=== PATIENT | male | born 1960 | race Caucasian/White ===

== ENCOUNTER → 2017-01-23 | Outpatient (CLI) | payer MEDICARE ==
[~2017-01-23] MED LIST: ADVA250A INH; ALBUAER3 INH; AMIT25TA9 PO; AMIT50TA3 PO; ASPI1TAB69 PO; ATEN50TA PO; BUPR150CR PO; CARV12.52 PO; CEPH-460 PO; CLOP75TA PO; FENO160T PO; GABA600T PO; HYDR-3583 PO; ISOS30TA3 PO; LISI40TA PO; MORP15TA73 PO; ROSU1TAB10 PO
[2017-01-23 13:03] LABS: BASOPHIL # 0.1 TH/MM3 (0-0.2); BASOPHIL % 0.7 % (0.0-2.0); EOSINOPHIL # 0.1 TH/MM3 (0-0.4); EOSINOPHIL % 1.7 % (0.0-4.0); HEMATOCRIT 41.3 % (39.0-51.0); HEMO FLAGS DIFF FINAL; LYMPH % 27.9 % (9.0-44.0); LYMPHOCYTE # 2.2 TH/MM3 (1.0-4.8); MEAN CELL VOLUME 92.3 FL (80.0-100.0); MEAN CORPUSCULAR HEMOGLOBIN 31.6 PG (27.0-34.0); MEAN CORPUSCULAR HGB CONC 34.2 % (32.0-36.0); MONO % 6.4 % (0.0-8.0); NEUT % 63.3 % (16.0-70.0); PLATELET COUNT 191 TH/MM3 (150-450); RED BLOOD COUNT 4.47 MIL/MM3 (4.50-5.90); RED CELL DISTRIBUTION WIDTH 14.2 % (11.6-17.2); WHITE BLOOD COUNT 7.9 TH/MM3 (4.0-11.0)
[2017-01-23 13:10] LABS: BACTERIA, URINE RARE /hpf; BLOOD, URINE NEG (NEG); COMMENT (UR) CULT NOT INDICATED; CULTURE IF INDICATED CULT NOT INDICATED; GLUCOSE,URINE NEG (NEG); KETONE, URINE NEG (NEG); NITRITE,URINE NEG (NEG); SQUAMOUS EPITHELIAL CELL URINE <1 /hpf (0-5); URINE COLOR YELLOW (YELLW/STRAW)
[2017-01-23 13:11] LABS: APTT (PATIENT) 28.2 SEC (24.3-30.1); PROTHROMBIN TIME - PATIENT 10.9 SEC (9.8-11.6)
[2017-01-23 13:33] LABS: ALKALINE PHOSPHATASE 65 U/L (45-117); ALT (GPT) 26 U/L (12-78); ANION GAP 7 MEQ/L (5-15); AST (GOT) 13 U/L (15-37); BICARBONATE 29.7 MEQ/L (21.0-32.0); BLOOD UREA NITROGEN 12 MG/DL (7-18); CHLORIDE 103 MEQ/L (98-107); GLOMERULAR FILTRATION RATE 63 ML/MIN (>89); GLUCOSE,FASTING 93 MG/DL (74-99); POTASSIUM 4.4 MEQ/L (3.5-5.1); SODIUM (NA) 140 MEQ/L (136-145); TOTAL BILIRUBIN ADULT 0.7 MG/DL (0.2-1.0)
--- NOTE | 2017-01-23 18:41 | EKG ---
Date Performed: 01/23/2017 Time Performed: 11:56:05 PTAGE: 56 years EKG: Sinus rhythm NONSPECIFIC T-WAVE ABNORMALITY BORDERLINE ECG NO PREVIOUS TRACING DOCTOR: Carlos Glover Interpretating Date/Time 01/23/2017 18:40:20
== END ==
LOC: CPRE 11:19
PROVIDERS: ATTEND Neurological Surgery
DX: Z01.810 Encounter for preprocedural cardiovascular examination (principal); Z01.812 Encounter for preprocedural laboratory examination; I25.10 Atherosclerotic heart disease of native coronary artery without angina pectoris; I10 Essential (primary) hypertension; E78.5 Hyperlipidemia, unspecified; R94.31 Abnormal electrocardiogram [ECG] [EKG]; Z79.01 Long term (current) use of anticoagulants; Z95.1 Presence of aortocoronary bypass graft; Z95.5 Presence of coronary angioplasty implant and graft
CPT/HCPCS: 36415; 80053; 81001; 85025; 85610; 85730; 93005

== ENCOUNTER 2017-01-28 05:56 | Observation (INO) | payer MEDICARE ==
--- NOTE | 2017-01-27 17:52 | MH ---
cc: MILAGROS MCGINNIS MD, ROHIT K. M.D. LEE, TSE C. MD NEWBYBAL,CHAS Rao MD DATE OF ADMISSION 01/28/2017 ADMITTING DIAGNOSIS Cervical degenerative disc disease. HISTORY OF THE PRESENT ILLNESS This is a 56-year-old male who presented to us for an evaluation of neck pain that he has had since 1998 when 300 pounds landed on the right side of his neck and shoulder. He states that he tore his brachial plexus and sustained significant nerve and motor damage related to this. He states that he gets severe headaches at night. He hears a grinding noise in his neck. He denies any radiculopathy in the upper extremities. He has numbness in the right upper extremity related to the nerve damage from his brachial plexus and sometimes gets numbness in the left hand also. He states that he feels like an ice pick is stabbing into the right side of his neck and then down his back. He denies any bowel or bladder incontinence or frequency. He has been to pain management and had extensive treatment with numerous injections since 1998 that have had varying degrees of success. He has been to physical therapy several times and he even has a home traction device. PAST MEDICAL HISTORY Significant for: 1. Headaches. 2. Hyperlipidemia. 3. Hypertension. 4. Chronic obstructive pulmonary disease. 5. Coronary artery disease with a history of coronary stents and bypass graft. 6. He also had surgery on his head and face. 7. He has also had bilateral shoulder surgery and surgery on his right hand also. MEDICATIONS Current medications: 1. He takes albuterol 90 micrograms two puffs q.4h as needed. 2. Amitriptyline 25 milligrams q.h.s. 3. Isosorbide mononitrate extended release 30 milligrams p.o. daily. 4. Morphine sulfate 15 milligrams p.o. q.6h. 5. Rosuvastatin 40 milligrams daily. 6. Aspirin 81 milligrams daily, this was placed on hold prior to surgical intervention. 7. Atenolol 50 milligrams p.o. daily. 8. Wellbutrin SR 150 milligrams p.o. q.12h. 9. Carvedilol 12.5 milligrams p.o. twice a day. 10. Plavix 75 milligrams p.o. daily. This was placed on hold one week prior to surgical intervention. 11. Fenofibrate 160 milligrams p.o. daily. 12. Advair Diskus inhaled one puff twice a day. 13. Gabapentin 600 milligrams p.o. twice a day. 14. Lisinopril 40 milligrams p.o. daily. ALLERGIES HE IS ALLERGIC TO TETRACYCLINE WHICH CAUSES SEVERE SKIN RASH AND AYALA AND BLISTERS. FAMILY HISTORY His mother is alive at 85 years old. His father is . He has one brother and one sister that are both alive. SOCIAL HISTORY He has children. He smokes 1-1/2 packs a day for 50 years. He drinks alcohol but states that it is once or twice a month. REVIEW OF SYSTEMS CONSTITUTIONAL: He denies any fever or chills. EARS, NOSE, AND THROAT: No pharyngitis or exudate or bloody drainage from his nose. CARDIOVASCULAR: Denies any chest pain, palpitations. RESPIRATORY: No cough or shortness of breath. Positive for wheezing. GENITOURINARY: No dysuria or polyuria. MUSCULOSKELETAL: Positive for neck pain. SKIN: No rashes or pruritus. NEUROLOGICAL: No difficulty with extremity weakness. Positive for difficulty with speech and memory. GASTROINTESTINAL: No nausea or vomiting, abdominal pain. PSYCHIATRIC: No anxiety or depression symptoms. ENDOCRINE: No polyuria or polydipsia. HEMATOLOGIC: No bruising or bleeding tendencies. PHYSICAL EXAMINATION HEAD: Normocephalic, atraumatic. NECK: Supple. No carotid bruits heard on auscultation. LUNGS: Clear to auscultation bilaterally. HEART: Regular rate and rhythm. Normal S1-S2. ABDOMEN: Soft. Positive bowel sounds. SKIN: Reveals no cyanosis or erythema. MUSCULOSKELETAL: He moves all four extremities but has restricted range of motion and strength in the right upper extremity related to his brachial plexus injury. He cannot abduct the arm to 90 degrees and has 3/5 strength. He has 3/5 triceps strength, 1/5 biceps strength. His right first finger has a 4/5 strength. The second finger is flexed. The third through the fifth fingers are extended and cannot be flexed. His left upper extremity strength is 5/5. NEUROLOGICAL: He is awake and alert, oriented. Cranial nerves II through XII appear grossly intact. Speech is fluent. Comprehension is good. Sensation is diminished in the right upper extremity, intact in the left upper extremity, although does complain of intermittent paresthesias and numbness in the left C6 and C7 dermatome. Reflexes are diminished in the upper and lower extremities. IMAGING Data reviewed, review MRI of the cervical spine from August 18, 2016 which reveals a disc osteophyte complex with degenerative disc disease at the C6-C7 level with associated spinal and bilateral foraminal stenosis. IMPRESSION A 56-year-old male with neck pain and associated occipital headaches and intrascapular and shoulder area pain as well as C6-C7 radiculopathy. He has chronic right brachial plexus injury and limited sensation and motor activity in the right arm and hand. He has a C6-C7 disc osteophyte complex with degenerative disc disease and associated spinal foraminal stenosis. He has failed conservative treatment measures including physical therapy and interventional pain management. He states that he cannot live with his current level of discomfort and is requesting surgical intervention. PLAN We have discussed treatment options with the patient and he will be a candidate for an anterior C6-C7 microdiskectomy with fusion that would address the degenerative disc disease along with disc osteophyte complex and spinal stenosis and foraminal stenosis. We have obtained cardiac clearance from his cert occupational therapy asst Dr. Mcginnis who states that the patient is cleared for neck surgery. Risks of cardiac complications is increased but not prohibitive. We have discussed the procedure in details with the patient as well as the risks, benefits and alternatives and recovery time. We have advised the patient to quit smoking at least two weeks prior to surgical intervention and he will need to refrain from smoking during his recovery where there is a risk of non fusion. The patient also understands the cardiopulmonary risks associated with smoking prior to surgical intervention. We have discussed further risks involved with surgery which include but are not limited to bleeding, infection, muscle weakness, voice hoarseness, difficulty swallowing, heart attack, stroke, blood clots, non fusion, scar tissue formation among others. The patient states that he understands the procedure as well as the risks involved and he is requesting that we proceed with surgical intervention. He was therefore, scheduled accordingly. DICTATED BY: Bradley Urbano PA-C MD JULIO Louie/MUKUL /4:48 PM /5:04 PM
[~2017-01-28] VITALS: Ht 185.4 cm; Wt 113.7 kg
[~2017-01-28 05:56] MED LIST changes: -AMIT50TA3 PO; -CEPH-460 PO; -HYDR-3583 PO
[2017-01-28] MEDS: SODIUM CHLOR 0.9% 1000 ML INJ 1,000 ML IV SCH (06:45)
[2017-01-28] MEDS ORDERED: METOPROLOL TARTRATE 25 MG TAB PO PRN (06:45)
[2017-01-28] MEDS ORDERED: INSULIN HUMAN REGULAR 1,000 UNITS/10 ML VIAL SQ PRN (06:45)
[2017-01-28] MEDS ORDERED: SODIUM CHLORID 0.9% 500 ML IV SCH (06:45)
[2017-01-28] MEDS ORDERED: VANCOMYCIN HCL 1000 MG ON-CALL/NS 250 ML IV SCH ×2 (06:45)
[2017-01-28] MEDS ORDERED: LACTATED RINGER'S 1000 ML IV SCH (06:45)
[2017-01-28 06:58] VITALS: BP 133/80; PULSE 63; RESP 16; TEMP 98.5; O2SAT 96
[2017-01-28] MEDS ORDERED: HYDROmorphone HCL PF 2 MG/ML VIAL ONE (06:59)
[2017-01-28] MEDS ORDERED: SUGAMMADEX SODIUM 200 MG/2 ML VIAL IV PUSH ONE ×2 (06:59)
[2017-01-28] MEDS ORDERED: ACETAMINOPHEN 1000 MG/100 ML VIAL IV ONE (06:59)
[2017-01-28] MEDS ORDERED: THROMBIN (TOPICAL) 5,000 UNIT VIAL ONE (07:10)
[2017-01-28] MEDS ORDERED: VANCOMYCIN HCL 1000 MG VIAL ONE (07:10)
[2017-01-28] MEDS ORDERED: GELFOAM SIZE 100 ONE (07:11)
[2017-01-28] MEDS ORDERED: BUPIVACAINE/EPINEPHRINE 0.5% PF 30 ML VIAL ONE (07:11)
[2017-01-28] MEDS ORDERED: *morphine SULFATE 8 MG/ML PERIprocedure ONLY ONE ×2 (11:55→12:36)
[2017-01-28] MEDS ORDERED: NORMOSOL R INJ 1,000 ML IV ONE (12:00)
[2017-01-28] MEDS ORDERED: PROPOFOL 200 MG/20 ML AMP IV ONE (12:00)
[2017-01-28] MEDS ORDERED: KETAMINE HCL 500 MG/5 ML VIAL IV ONE (12:00)
[2017-01-28] MEDS ORDERED: ONDANSETRON HCL 4 MG/2 ML VIAL IV PUSH ONE (12:00)
[2017-01-28] MEDS ORDERED: NEOSTIGMINE 3 MG/3 ML SYR IV ONE (12:00)
[2017-01-28] MEDS ORDERED: SODIUM CHLOR 0.9% 250 ML INJ 250 ML IV ONE (12:00)
[2017-01-28] MEDS ORDERED: PHENYLEPH/NS 1000 MCG/10 ML SYR IV ONE (12:00)
[2017-01-28] MEDS ORDERED: ePHEDrine/NS 25 MG/5 ML SYR IV ONE (12:00)
[2017-01-28] MEDS ORDERED: DO NOT ADM ANY ANTICOAGULANT DRUGS XX PRN (12:00)
[2017-01-28] MEDS ORDERED: fentaNYL CITRATE 250 MCG/5 ML AMP ONE (12:02)
[2017-01-28] MEDS ORDERED: MIDAZOLAM HCL 2 MG/2 ML VIAL ONE (12:02)
[2017-01-28] MEDS ORDERED: NS + KCL 20 MEQ INJ 1,000 ML IV SCH (12:10)
[2017-01-28] MEDS ORDERED: RESP: ALBUTEROL 2.5 MG/3 ML NEB (PRN) NEB (12:15)
[2017-01-28] MEDS ORDERED: ALBUTEROL SULFATE 90 MCG/ACT HFA 8 GM INHALER INH PRN (12:15)
[2017-01-28] MEDS ORDERED: ACETAMINOPHEN/HYDROcodone 325 MG/10 MG TAB PO PRN (12:15)
[2017-01-28] MEDS ORDERED: SODIUM CHLORIDE 0.9% FLUSH 5 ML FLUSH IVF PRN (12:15)
[2017-01-28] MEDS ORDERED: CYCLOBENZAPRINE HCL 10 MG TAB PO PRN (12:15)
[2017-01-28] MEDS ORDERED: ZOLPIDEM TARTRATE 5 MG TAB PO PRN (12:15)
[2017-01-28] MEDS ORDERED: cloNIDine HCL 0.1 MG TAB PO PRN (12:15)
[2017-01-28] MEDS ORDERED: ONDANSETRON HCL 4 MG/2 ML VIAL IV PRN (12:15)
[2017-01-28] MEDS ORDERED: BISACODYL 10 MG SUPP PR PRN (12:15)
[2017-01-28] MEDS ORDERED: MENTHOL LOZENGE SUCK-ON PRN (12:15)
[2017-01-28] MEDS ORDERED: METOCLOPRAMIDE HCL 10 MG/2 ML VIAL IVS PRN (12:15)
[2017-01-28] MEDS ORDERED: ALUMINUM/MAGNESIUM/SIMETH 30 ML CUP PO PRN (12:15)
[2017-01-28] MEDS ORDERED: ACETAMINOPHEN 325 MG TAB PO PRN (12:15)
[2017-01-28] MEDS ORDERED: HYDROmorphone HCL PF 1 MG/ML VIAL IV PUSH PRN (12:15)
[2017-01-28] MEDS ORDERED: MAGNESIUM HYDROXIDE SUSP 30 ML CUP PO PRN (12:15)
--- NOTE | 2017-01-28 12:19 | PD.OP ---
cc: Lakshmi Marcos MD R2 Alen Burgos MD Operative Report Date of Surgery: Jan 28, 2017 Preoperative Diagnosis: Intractable neck pain with bilateral C6 and C7 radiculopathy; C6-C7 severe degenerative disc disease with disc osteophyte complex and associated bilateral foraminal stenosis Postoperative Diagnosis: Same Procedure: Anterior cervical C6-7 microdiscectomy with interbody fusion; anterior C6-7 cervical plate placement; C6-7 interbody cage placement; microsurgical technique Anesthesia: Gen. endotracheal by Ivy Allred Surgeon: Drew Ghotra M.D. Heavy Duty Diesel Mechanic(s): Ness Vásquez Operation and Findings: Following administration of general endotracheal anesthesia, the patient received a gram of vancomycin and Decadron 10 mg intravenously. Sequential compression devices were placed in supine position on a Carlos table and all pressure points adequately padded. The head secured in a donut and anterior cervical region then shaved and prepped with Chloraprep and sterilely draped with Ioban along with the usual sterile draping. A transverse skin incision on the left side of the neck was then made after infiltrating the skin with 0.5% Marcaine with epinephrine solution extending down through the platysma. At the anterior border of the sternocleidomastoid further dissection was undertaken developing a plane between the carotid sheath laterally and the trachea esophagus medially. The prevertebral fascia was exposed and dissected out. The medial attachments of the longus colli muscles were detached and a self- retaining retractor used for exposure. The C6-7 disc space was localized with a marking pin the disc space and using lateral fluoroscopy. Owasso distraction screws 14 mm length were placed one in the C6 and one in the C7 body interbody distraction and exposure. There was significant disc degeneration with disc height collapse and anterior osteophytes noted at the C6-7 level and the osteophytes were resected with a Leksell and annulus incised with a 15 blade and further dissection undertaken using microtechnique with microscope magnification. Diskectomy was undertaken with pituitaries and the endplates were also decorticated with curettes and drill bit. And more posteriorly there was disk osteophyte complex compressing the thecal sac along with a significant uncovertebral joint hypertrophy with foraminal stenosis which was decompressed along with removal of the posterior longitudinal ligaments at both levels. The foramen was decompressed bilaterally using a Kerrison's and palpation with a nerve hook, the exiting nerve roots were felt to be free. The area was then copiously irrigated. I then placed a Peek cage packed with local autograft bone at the C6-7 interspace under fluoroscopy guidance. Owasso distraction pins were removed and the holes plugged with Gelfoam for hemostasis. In order to facilitate the fusion and provide stabilization, a Precision spine cervical plate was then placed with two 14 mm variable angle screws in the C6 body and two 14 mm fixed angle screws in the C7 body. The plate screw locking mechanism was then engaged. AP and lateral fluoroscopy confirmed good placement of the construct and the retractor was then removed. Muscular bleeding points were cauterized with bipolar cautery and Gelfoam was then also used for hemostasis which was removed. The platysma was then approximated using 3-0 Vicryl interrupted stitches and 3-0 Vicryl subcuticular stitch also placed in an interrupted fashion, and final skin closure was with Mastisol and Steri-Strips. Sterile dressing was then applied. The patient was then extubated and taken to the recovery room. There are no intraoperative complications and all sponge and needle counts were correct at the end of procedure. Estimated blood loss was about 30 cc. The patient did undergo intraoperative neurologic monitoring which remained stable throughout the surgery. Drew Ghotra MD Jan 28, 2017 12:19
--- NOTE | 2017-01-28 13:57 | RADRPT ---
EXAM DATE/TIME: 01/28/2017 08:42 [facility] COMPARISON: No previous studies available for comparison. INDICATIONS : Fusion C6,C7 with screw and plate placement. MEDICAL HISTORY : None. SURGICAL HISTORY : None. ENCOUNTER: Initial ACUITY: 1 day PAIN SCORE: Non-responsive. LOCATION: Cervical spine. FINDINGS: 4 images from the OR had been submitted. On the AP view, there is an anterior cervical fusion plate a t the C6-C7 level. This is seen on a coned down lateral view although the entire cervical spine is no t included on this image. On the standard lateral view, C1-C5 are seen. The plate is not seen on that view. CONCLUSION: Anterior cervical fusion plate at the C6-C7 level. Lake Joyner MD on January 28, 2017 at 13:53 Board Certified Radiologist. This report was verified electronically.
[2017-01-28 16:00] VITALS: BP 143/83; PULSE 64; RESP 16; TEMP 96.2; O2SAT 98
[2017-01-28] MEDS: DEXAMETHASONE SOD PHOS 4 MG/ML VIAL IV SCH ×2 (17:34→20:23)
[2017-01-28] MEDS: MORPHINE SULFATE 15 MG CONTROLLED RELEASE TAB PO SCH ×2 (17:35→22:13)
[2017-01-28] MEDS: ACETAMINOPHEN/HYDROcodone 325 MG/10 MG TAB PO PRN ×2 (17:36→22:12)
[2017-01-28 20:10] VITALS: BP 131/82; PULSE 76; RESP 21; TEMP 97.3; O2SAT 95
[2017-01-28] MEDS: GABAPENTIN 300 MG CAP PO SCH (20:22)
[2017-01-28] MEDS: DOCUSATE SODIUM 100 MG CAP PO SCH (20:22)
[2017-01-28] MEDS: buPROPion HCL 150 MG SUSTAINED RELEASE TAB PO SCH (20:23)
[2017-01-28] MEDS: BUDESONIDE-FORMOTEROL 160/4.5 MCG INHALER INH SCH (20:23)
[2017-01-28] MEDS: SODIUM CHLORIDE 0.9% FLUSH 5 ML FLUSH IVF SCH (20:23)
[2017-01-28] MEDS: CARVEDILOL 12.5 MG TAB PO SCH (20:23)
[2017-01-28] MEDS ORDERED: AMITRIPTYLINE HCL 25 MG TAB PO SCH (21:00)
[2017-01-29 00:22] VITALS: BP 126/75; PULSE 73; RESP 20; TEMP 98.4; O2SAT 97
[2017-01-29] MEDS: DEXAMETHASONE SOD PHOS 4 MG/ML VIAL IV SCH (02:13)
[2017-01-29 04:12] VITALS: BP 135/84; PULSE 62; RESP 21; TEMP 97.1; O2SAT 97
[2017-01-29] MEDS: MORPHINE SULFATE 15 MG CONTROLLED RELEASE TAB PO SCH (05:14)
[2017-01-29] MEDS: SODIUM CHLOR 0.9% 1000 ML INJ 1,000 ML IV SCH (06:45)
[2017-01-29 08:00] VITALS: BP 126/74; PULSE 69; RESP 18; TEMP 98.2; O2SAT 95
[2017-01-29] MEDS: GABAPENTIN 300 MG CAP PO SCH (09:00)
[2017-01-29] MEDS ORDERED: FENOFIBRATE 145 MG TAB PO SCH (09:00)
[2017-01-29] MEDS: DOCUSATE SODIUM 100 MG CAP PO SCH (09:00)
[2017-01-29] MEDS ORDERED: ATENOLOL 50 MG TAB PO SCH (09:00)
[2017-01-29] MEDS ORDERED: PANTOPRAZOLE SOD 40 MG DELAYED RELEASE TAB PO SCH (09:00)
[2017-01-29] MEDS ORDERED: LISINOPRIL 20 MG TAB PO SCH (09:00)
[2017-01-29] MEDS: SODIUM CHLORIDE 0.9% FLUSH 5 ML FLUSH IVF SCH (09:00)
[2017-01-29] MEDS: BUDESONIDE-FORMOTEROL 160/4.5 MCG INHALER INH SCH (09:00)
[2017-01-29] MEDS: CARVEDILOL 12.5 MG TAB PO SCH (09:00)
[2017-01-29] MEDS ORDERED: ATORVASTATIN 80 MG TAB PO SCH (09:00)
[2017-01-29] MEDS: buPROPion HCL 150 MG SUSTAINED RELEASE TAB PO SCH (09:00)
[2017-01-29] MEDS ORDERED: ISOSORBIDE MONONITRATE 30 MG TAB PO SCH (09:00)
--- NOTE | 2017-01-29 09:08 | HHI.NSPN ---
History Chief Complaint: Mild incisional soreness Interval History 01/29/17: Pt underwent a C6/C7 anterior cervical fusion with interbody cage and plate placement on 01/30/[address] Ghotra. He has mild throat soreness. No difficulty swallowing. Voiding and had bm okay. Ambulating around floor well. Review of Systems General: Negative for: fever, chills, insomnia Respiratory: Negative for: shortness of breath, cough, sputum Cardiovascular: Negative for: chest pain Gastrointestinal: Negative for: nausea, vomitting, diarrhea, constipation Exam Results Vital Signs Date Time Temp Pulse Resp B/P Pulse Ox O2 Delivery O2 Flow Rate FiO2 01/29/17 08:00 98.2 69 18 126/74 95 01/28/17 13:40 Room Air 01/28/17 12:30 2 Intake and Output 01/28/17 01/28/17 01/29/17 08:00 16:00 00:00 Intake Total 1740 ml 480 ml Output Total 100 ml Balance 1640 ml 480 ml Physical Examination Resp: CTA bilaterally Heart: NSR no murmurs Abd: Soft positive bs Skin: Incision clean and dry. New bandage applied. No signs of infection or complication Muscle: Moves all 4 extremities with stable preop strength. Chronic disability right hand. Neuro: Pt awake and alert. Wants to go home. Speech clear and appropriate. Lab, Micro, Other Results Last Impressions Cervical Spine X-Ray 01/28/17 0000 Signed Impressions: Service Date/Time: Saturday, January 28, 2017 08:42 - CONCLUSION: Anterior cervical fusion plate at the C6-C7 level. Lake Joyner MD 01/28/17 01/28/17 01/29/17 15:00 23:00 07:00 Intake Total 1500 ml 720 ml 480 ml Output Total 100 ml Balance 1400 ml 720 ml 480 ml Intake Oral 720 ml 480 ml Other 1500 ml Output Estimated Blood Loss 100 ml # Voids 3 5 # Bowel Movements 0 0 Medical Decision Making Impression and Plan A: 56 y/o M s/p C6/C7 anterior cervical fusion with plate placement P: D/C home Follow restrictions Follow up as directed on preop instruction sheet. Bradley Urbano Jan 29, 2017 09:08
[2017-01-29] MEDS ORDERED: HYDR-3583 PO (09:16)
[2017-02-20] MEDS ORDERED: AMIT50TA3 PO (09:33)
[2017-02-20] MEDS ORDERED: GABA600T PO (09:37)
[2017-03-23] MEDS ORDERED: ALBUAER3 INH (23:12)
[2017-04-15] MEDS ORDERED: CLOP75TA PO (13:43)
[2017-04-15] MEDS ORDERED: LISI40TA PO (13:43)
[2017-04-15] MEDS ORDERED: CARV12.52 PO (13:43)
[2017-04-15] MEDS ORDERED: FENO160T PO (13:43)
[2017-04-15] MEDS ORDERED: ATEN50TA PO (13:43)
[2017-05-05] MEDS ORDERED: BUPR150CR PO (07:11)
== END 2017-01-29 10:10 | disposition home or self-care (01) ==
LOC: HSDC 05:56 → HSDI 12:14 → N06B 13:55
PROVIDERS: ADMIT Neurological Surgery; ATTEND Neurological Surgery
DX: M50.123 Cervical disc disorder at C6-C7 level with radiculopathy (principal); M48.02 Spinal stenosis, cervical region; E78.5 Hyperlipidemia, unspecified; I10 Essential (primary) hypertension; J44.9 Chronic obstructive pulmonary disease, unspecified; I25.10 Atherosclerotic heart disease of native coronary artery without angina pectoris; Z95.5 Presence of coronary angioplasty implant and graft; Z79.82 Long term (current) use of aspirin; Z79.01 Long term (current) use of anticoagulants; Z88.1 Allergy status to other antibiotic agents; F17.200 Nicotine dependence, unspecified, uncomplicated
CPT/HCPCS: 00670; 20936; 22551; 22853; 72040; 76000; 94150; C1713; G0378; J0131; J0690; J1100; J1170; J2250; J2270; J2370; J2405; J2710; J3010; J3370; J3480; J7050; J7120

== ENCOUNTER → 2017-08-14 | Outpatient (CLI) | payer MEDICARE ==
[~2017-08-14] MED LIST changes: -AMIT25TA9 PO; +AMIT50TA3 PO; -ASPI1TAB69 PO; +ERYTOIN10 RIGHT EYE; +HYDR-3583 PO; +INFL1INJ56 IM; +MORP60TA24 PO
[2017-08-14 10:40] LABS: ANION GAP 2 MEQ/L (5-15); AST (GOT) 10 U/L (15-37); BICARBONATE 31.7 MEQ/L (21.0-32.0); BLOOD UREA NITROGEN 19 MG/DL (7-18); CHLORIDE 107 MEQ/L (98-107); GLOMERULAR FILTRATION RATE 60 ML/MIN (>89); GLUCOSE,FASTING 88 MG/DL (74-99); POTASSIUM 4.5 MEQ/L (3.5-5.1); SODIUM (NA) 141 MEQ/L (136-145)
[2017-08-14 10:44] LABS: ALKALINE PHOSPHATASE 56 U/L (45-117); ALT (GPT) 18 U/L (12-78); HDL CHOLESTEROL 37.5 MG/DL (40.0-60.0); LDL CHOLESTEROL 54 MG/DL (0-99); TOTAL BILIRUBIN ADULT 0.5 MG/DL (0.2-1.0)
== END ==
LOC: CLAB 09:39
PROVIDERS: ATTEND Family Medicine
DX: E78.2 Mixed hyperlipidemia (principal); I25.10 Atherosclerotic heart disease of native coronary artery without angina pectoris; Z12.5 Encounter for screening for malignant neoplasm of prostate; H02.9 Unspecified disorder of eyelid
CPT/HCPCS: 36415; 80053; 80061; 84153; 84154; 88305

== ENCOUNTER → 2018-04-09 | Outpatient (CLI) | payer MEDICARE ==
[~2018-04-09] MED LIST changes: -INFL1INJ56 IM; -MORP15TA73 PO
[2018-04-09 10:40] LABS: BASOPHIL % 0.4 % (0.0-2.0); EOSINOPHIL # 0.1 TH/MM3 (0-0.4); EOSINOPHIL % 1.5 % (0.0-4.0); HEMATOCRIT 46.4 % (39.0-51.0); HEMOGLOBIN 15.3 GM/DL (13.0-17.0); LYMPH % 22.5 % (9.0-44.0); LYMPHOCYTE # 1.6 TH/MM3 (1.0-4.8); MEAN CELL VOLUME 92.8 FL (80.0-100.0); MEAN CORPUSCULAR HEMOGLOBIN 30.7 PG (27.0-34.0); MEAN CORPUSCULAR HGB CONC 33.1 % (32.0-36.0); MEAN PLATELET VOLUME 7.4 FL (7.0-11.0); MONO % 5.9 % (0.0-8.0); MONOCYTE # 0.4 TH/MM3 (0-0.9); NEUT % 69.7 % (16.0-70.0); PLATELET COUNT 169 TH/MM3 (150-450); RED CELL DISTRIBUTION WIDTH 15.2 % (11.6-17.2); WHITE BLOOD COUNT 7.1 TH/MM3 (4.0-11.0)
[2018-04-09 11:18] LABS: ALBUMIN 3.9 GM/DL (3.4-5.0); AST (GOT) 10 U/L (15-37); BICARBONATE 28.8 MEQ/L (21.0-32.0); BLOOD UREA NITROGEN 11 MG/DL (7-18); CALCIUM 8.9 MG/DL (8.5-10.1); CHLORIDE 105 MEQ/L (98-107); CREATININE 1.01 MG/DL (0.60-1.30); GLOMERULAR FILTRATION RATE 76 ML/MIN (>89); GLUCOSE,FASTING 109 MG/DL (74-99); SODIUM (NA) 141 MEQ/L (136-145)
[2018-04-09 11:19] LABS: ALT (GPT) 17 U/L (12-78); CHOLESTEROL 130 MG/DL (120-200); TRIGLYCERIDES 195 MG/DL (42-150)
[2018-04-09 11:22] LABS: ALKALINE PHOSPHATASE 103 U/L (45-117); CHOLESTEROL/ HDL RATIO 3.75 RATIO; HDL CHOLESTEROL 34.6 MG/DL (40.0-60.0); LDL CHOLESTEROL 56 MG/DL (0-99); TOTAL BILIRUBIN ADULT 1.2 MG/DL (0.2-1.0); TOTAL PROTEIN 7.1 GM/DL (6.4-8.2)
== END ==
LOC: CLAB 10:02
PROVIDERS: ATTEND Family Medicine
DX: J44.9 Chronic obstructive pulmonary disease, unspecified (principal); I25.10 Atherosclerotic heart disease of native coronary artery without angina pectoris
CPT/HCPCS: 36415; 80053; 80061; 85025